=== PATIENT | female | born 1995 | race Caucasian/White ===

== ENCOUNTER 2025-02-23 16:32 | Emergency (ER) | payer OTHER, SELFPAY ==
[2025-02-23 16:38] VITALS: BP 168/94; PULSE 120; RESP 18; TEMP 36.9; O2SAT 98; BMI 25.6
[2025-02-23] MEDS: AMOXICILLIN/CLAV 875/125 MG 1 TAB PO (17:32)
--- NOTE | 2025-02-23 17:35 | ED.DENTAL ---
HPI - Dental/Oral <Elaine Cummings PA-C - Last Filed: 02/23/25 17:48> General Chief complaint: Dental/Oral Stated complaint: swelling face, feels sick Time Seen by Provider: 02/23/25 16:52 History of Present Illness HPI Narrative: Ms. Hardin is a very pleasant 29-year-old female with a past medical history of chronic poor dentition, prior substance use, current cigarette smoking who presents to the emergency department for left-sided facial swelling and flu-like symptoms x1 week. Patient states she noticed she had some swollen lymph nodes and was feeling somewhat feverish and having left upper dental pain. Her dental pain improved however she started developing swelling of the maxillary side of her face And she is concerned that she needs antibiotics. She is afebrile at this time and denies pain. She states that she is aware she needs to have dental work done. No difficulty swallowing, speaking, no oropharyngeal swelling. No drainage. No meds [employer]. States that she has a fast heart rate at baseline. Related Data Previous Rx's Medication Instructions Recorded amoxicillin 875 mg-potassium 1 tab PO BID 14 days #28 tabs 02/23/25 clavulanate 125 mg tablet Allergies Allergy/AdvReac Type Severity Reaction Status Date / Time bee venom protein (honey bee) Allergy Verified 02/23/25 16:38 latex Allergy Verified 02/23/25 16:38 Review of Systems <Elaine Cummings PA-C - Last Filed: 02/23/25 17:48> Review of Systems ROS Unobtainable: All systems reviewed & are unremarkable except as noted in HPI and below Patient History <Elaine Cummings PA-C - Last Filed: 02/23/25 17:48> Social History Smoking Status: Current every day smoker Smoking Status: Current every day smoker tobacco type: cigarettes Exam <Elaine Cummings PA-C - Last Filed: 02/23/25 17:48> Narrative Exam Narrative: GENERAL: 29 year old patient appears stated age. Well-developed patient, in no acute distress. HEAD: Atraumatic. Normocephalic. Mild left-sided maxillary facial swelling. No overlying erythema or skin changes. EYES: PERRL. Extraocular motions intact. No scleral icterus. No injection or drainage. ENT: Patient has chronic poor dentition with multiple missing teeth. On the left upper gingiva she has some erythema and painful fractured teeth however she does not have any palpable abscess, fluctuance or drainage. Nose without bleeding, purulent drainage. Throat without erythema, tonsillar hypertrophy or exudate. Airway patent. Floor of the mouth is soft. NECK: mild palpable bilateral cervical lymphadenopathy. Trachea midline. Cervical ROM intact. Submandibular region is soft. CARDIOVASCULAR: Increased rate and regular rhythm RESPIRATORY: Nonlabored respirations. Speaking in clear, full sentences. Clear to auscultation. Breath sounds equal bilaterally. No wheezes, rales, or rhonchi. NEURO: AOx3. Clear speech. Moves all 4 extremities appropriately. SKIN: No rash or erythema of visible areas Initial Vital Signs Initial Vital Signs: Vital Signs Temperature 98.4 F 02/23/25 16:38 Pulse Rate 120 H 02/23/25 16:38 Respiratory Rate 18 02/23/25 16:38 Blood Pressure 168/94 H 02/23/25 16:38 Pulse Oximetry 98 02/23/25 16:38 Oxygen Delivery Method Room Air 02/23/25 16:38 <DO Katelin Villalpando Last Filed: 02/24/25 09:36> Initial Vital Signs Initial Vital Signs: Vital Signs Temperature 98.4 F 02/23/25 16:38 Pulse Rate 120 H 02/23/25 16:38 Respiratory Rate 18 02/23/25 16:38 Blood Pressure 168/94 H 02/23/25 16:38 Pulse Oximetry 98 02/23/25 16:38 Oxygen Delivery Method Room Air 02/23/25 16:38 Course <Elaine Cummings PA-C - Last Filed: 02/23/25 17:48> Orders Ordered: Discontinued Medications Amoxicillin/Clavulanate Potassium (Amoxicillin/Clav 875/125 Mg) 1 tab PO NOW ONE Stop: 02/23/25 17:29 Last Admin: 02/23/25 17:32 Dose: 1 tab Documented By: ZINA Vital Signs Vital signs: Vital Signs - 8 hr 02/23/25 16:38 Temperature 98.4 F Pulse Rate 120 H Respiratory Rate 18 Blood Pressure 168/94 H Pulse Oximetry 98 Oxygen Delivery Method Room Air <DO Katelin Villalpando Last Filed: 02/24/25 09:36> Orders Ordered: Discontinued Medications Amoxicillin/Clavulanate Potassium (Amoxicillin/Clav 875/125 Mg) 1 tab PO NOW ONE Stop: 02/23/25 17:29 Last Admin: 02/23/25 17:32 Dose: 1 tab Documented By: ZINA Vital Signs Vital signs: Vital Signs - 8 hr 02/23/25 16:38 Temperature 98.4 F Pulse Rate 120 H Respiratory Rate 18 Blood Pressure 168/94 H Pulse Oximetry 98 Oxygen Delivery Method Room Air MDM - Dental/Oral <Elaine Cummings PA-C - Last Filed: 02/23/25 17:48> Medical Records Medical records narrative: None available for review MDM Narrative Medical decision making narrative: 29-year-old female with a past medical history of chronic poor dentition, prior substance use, current cigarette smoking who presents to the emergency department for left-sided facial swelling and flu-like symptoms x1 week. Differential diagnosis includes but is not limited to dental infection, dental abscess, maxillary abscess, sinus infection, etc. On exam patient is in no acute distress, nontoxic appearing, afebrile. Heart rate is elevated however she states this is her baseline. She has some left-sided maxillary facial swelling, significant for chronic dentition with some dental pain tenderness and gingival erythema with no palpable abscess. oropharynx is widely patent, no muffled voice, signs of Benito's angina, no airway compromise. Patient is able to open her mouth fully. She is not in any pain. We will treat with Augmentin b.i.d. times 14 days, patient requests 14 day course versus shorter course. She has done well with the antibiotic in the past. Recommended probiotic, follow up with PCP and dentist promptly, ED return precautions discussed. She verbalized understanding of all information is agreeable with the plan. ED return precautions discussed. First dose of antibiotics given in the ED, remainder of course sent to pharmacy of choice. Discharge Plan Departure Patient Disposition: Home Clinical Impression: Dental infection Instructions: Tooth Abscess Activity Restrictions/Additional Instructions: Thank you for coming to the emergency department. Today I am treating her for left-sided upper dental infection. Please complete the full course of antibiotics prescribed, use ibuprofen, Tylenol, Orajel if needed for pain. It is very important to follow up with a dentist as soon as possible for further management and prevention of recurrent infection. Please brush teeth daily, rinse or use mouthwash after eating or drinking. You may apply warm compresses to the left side of your face to help with possible drainage of abscess, you may also alternate with ice to help with swelling. Please take Ibuprofen (Motrin/Advil) or Acetaminophen (Tylenol) for pain. These are available over the counter. You may take Ibuprofen 600 mg every 8 hours with food for pain. You may also take Acetaminophen 650 mg every 4-6 hours for pain. Do not exceed 3000 mg of Tylenol a day as this can cause liver damage. Do not drink alcohol with either of these medications. Please follow up with your primary care doctor within the next 2-3 days for ER follow-up. (If you do not have a PCP you can call [phone]. to schedule an appointment with an [facility] Primary Care Provider) IF YOU DEVELOP ANY NEW OR WORSENING SYMPTOMS, RETURN TO THE ER! Please read the attached instructions, they highlight more specific treatments and interventions for you at home. Thank you for letting me participate in your care, Elaine Cummings PA-C Prescriptions: New amoxicillin-pot clavulanate 875-125 mg tablet 1 tab PO BID 14 Days Qty: 28 0RF Stand Alone Forms: Patient Portal/API/Survey ED Sign-out <Lydia Phan DO - Last Filed: 02/24/25 09:36> Cosign ED Attending Davionature Attestation: I was available for consultation.
[2025-02-23 17:41] VITALS: BP 136/83; PULSE 110; RESP 18; O2SAT 99
== END 2025-02-23 17:51 | disposition home or self-care (01) ==
PROVIDERS: Emergency Provider Physician Assistant
DX: K04.7 Periapical abscess without sinus (principal)
CPT/HCPCS: 99283